=== PATIENT | male | born 1955 | race Caucasian/White ===

== ENCOUNTER 2017-11-16 07:48 | Inpatient (IN) | payer SELFPAY ==
[2017-11-16] VITALS (12 sets, daily range): BP systolic 142–181; BP diastolic 74–103; BMI 27.1
[~2017-11-16] VITALS: Ht 182.9 cm; Wt 90.7 kg
[~2017-11-16 07:48] MED LIST changes: -AMLO-96 PO; -HYDR-4309 PO; -PANT40TA65 PO; -TAMS0.4C70 PO; -TRAM-420 PO
[2017-11-16] MEDS ORDERED: NS(*) 0.9% 1000 ML BAG 1,000 ML IV ONE (07:58)
[2017-11-16] MEDS ORDERED: ONDANSETRON 4 MG/2 ML VIAL IVP ONE (08:00)
[2017-11-16] MEDS ORDERED: HYDROmorphone* 1 MG/ML 1 MG/ML ML IVP ONE ×2 (08:00)
[2017-11-16 08:09] LABS: PLATELET COUNT, AUTOMATED 307 K/uL (150-450)
[2017-11-16] MEDS ORDERED: TRAM-420 PO (08:09)
--- NOTE | 2017-11-16 08:10 | EKG ---
FACILITY: [facility] - [place] PATIENT NAME: AYAD PEREZ : [id number] MR: [id number] V: [id number] EXAM DATE: ORDERING PHYSICIAN: MELY DUNBAR TECHNOLOGIST: ADA Test Reason : SOB Blood Pressure : / mmHG Vent. Rate : 069 BPM Atrial Rate : 069 BPM P-R Int : 140 ms QRS Dur : 096 ms QT Int : 400 ms P-R-T Axes : 038 -48 045 degrees QTc Int : 428 ms Normal sinus rhythm Possible Left atrial enlargement Left anterior fascicular block Anterior infarct , age undetermined Abnormal ECG Confirmed by ARYAN CHO ([id number]) on 11/16/2017 7:03:46 PM Referred By: BETTINA Confirmed By:ARYAN CHO
[2017-11-16 08:18] LABS: INR 1.04
[2017-11-16] MEDS ORDERED: EMS NS 0.9%(*) 1000 ML BAG 1,000 ML IV ONE (08:20)
--- NOTE | 2017-11-16 08:26 | ER Report ---
History and Physical Time Seen By MD: 08:08 Hx. of Stated Complaint: WOKE UP WITH SEVERE UPPER ABDOMINAL PAIN. HPI/ROS CHIEF COMPLAINT: Severe epigastric abdominal pain HISTORY OF PRESENT ILLNESS: Patient is a 62-year-old male who denies any significant past medical history other than left hip arthritis. He is brought to the emergency department by EMS for severe epigastric abdominal pain with some radiation to the bilateral shoulders that began suddenly around 4 AM. Patient states he felt fine yesterday and when he went to sleep. The pain woke him up at 4 AM and was severe and very intense associated with nausea and vomiting. Patient reports last bowel movement was normal and occurred yesterday. He denies any chest pain or pressure. He does report some pain with deep inspiration. Patient received 100 g of fentanyl and 4 mg of Zofran prehospital he with minimal relief in symptoms. Patient is a smoker but quit 20 years ago. He does admit to 4-5 beers every single evening. Patient denies having any retching prior to the onset of the pain. He denies any radiation of pain to the back. Patient does not follow routinely with a physician. REVIEW OF SYSTEMS: Constitutional: No fever, no chills. Eyes: No discharge. ENT: No sore throat. Cardiovascular: No chest pain, no palpitations. Respiratory: No cough, no shortness of breath. Gastrointestinal: Epigastric abdominal pain, nausea and vomiting no diarrhea no constipation Genitourinary: No hematuria. Musculoskeletal: No back pain. Skin: No rashes. Neurological: No headache. Allergies: Coded Allergies: No Known Drug Allergies (Unverified , 11/16/17) Home Meds Reported Medications Tramadol Hcl (TRAMADOL HCL) 50 Mg Tablet, 50 MG PO Q4-6H Y for PAIN, TAB 11/16/17 Discontinued Scripts Amoxicillin/Pot Clav 875-125 Mg Tab (AUGMENTIN 875-125 TABLET) 1 Each Tablet, 1 TAB PO Q12H, #14 TAB 0 Refills Prov:ARAMIS TITUS MD 12/21/15 Past Medical/Surgical History Left hip arthritis Hx Smoking: No Hx Substance Use Disorder: No Constitutional Vital Sign - Last 24 Hours 11/16/17 11/16/17 11/16/17 11/16/17 07:55 07:58 08:00 08:02 Temp 98.5 Pulse 72 Resp 18 B/P (MAP) 135/89 131/103 (112) 135/89 (104) 131/82 (98) Pulse Ox 95 O2 Delivery Nasal Cannula 11/16/17 11/16/17 11/16/17 11/16/17 08:08 08:18 08:58 09:00 Pulse 75 69 78 Resp 25 13 9 B/P (MAP) 174/85 (114) Pulse Ox 92 92 97 11/16/17 11/16/17 09:08 09:16 Pulse 77 82 Resp 11 Pulse Ox 94 Intake and Output 11/16/17 11/16/17 11/17/17 15:00 23:00 07:00 Intake Total 1000 ml Output Total 1300 ml Balance -300 ml Physical Exam General/Constitutional: Patient is awake, alert, patient appears diaphoretic and uncomfortable. Head: Normocephalic and atraumatic. Eyes: Conjunctival clear, Pupils are equal and reactive to light. Extraocular muscles are intact and symmetrical. Sclera are clear and anicteric. Ears:External canals are clear. Tympanic membranes are clear with normal landmarks and light reflex. Nares: No rhinorrhea or bleeding. Turbinates are pink and moist. Oropharyngeal: Mucous membranes are moist. There is no pharyngeal erythema or exudate. There are no palatal petechiae. Uvula is midline and symmetrical. Neck: Supple, no adenopathy. Cardiovascular: Heart is regular rate and rhythm without audible murmurs, rubs or gallops. Pulmonary: Lungs are clear to auscultation bilaterally. There are no wheezes, rales, or rhonchi. Chest rise is symmetrical Abdomen: Abdomen is somewhat rigid no peritoneal signs are elicited. Extremities: No gross deformities, No peripheral cyanosis. Able to move all 4 extremities. Neuro: Alert and oriented X3, Skin: Patient's nose has somewhat of a bluish hue but no other peripheral cyanosis is noted no rashes noted. Medical Decision Making Data Points Result Diagram: 11/16/17 0732 11/16/17 0732 Laboratory Hematology Test 11/16/17 07:32 11/16/17 08:18 11/16/17 09:12 Red Blood Count 5.30 M/uL (4.00-5.60) Mean Corpuscular Volume 86.6 fL (80.0-96.0) Mean Corpuscular Hemoglobin 29.8 pg (26.0-33.0) Mean Corpuscular Hemoglobin Concent 34.5 g/dL (32.0-36.0) Red Cell Distribution Width 12.9 % (11.5-14.5) Mean Platelet Volume 8.0 fL (7.2-11.1) Neutrophils (%) (Auto) 85.3 % (39.4-72.5) Lymphocytes (%) (Auto) 9.4 % (17.6-49.6) Monocytes (%) (Auto) 4.2 % (4.1-12.4) Eosinophils (%) (Auto) 0.5 % (0.4-6.7) Basophils (%) (Auto) 0.6 % (0.3-1.4) Nucleated RBC Relative Count (auto) 0.1 /100WBC Neutrophils # (Auto) 6.2 K/uL (2.0-7.4) Lymphocytes # (Auto) 0.7 K/uL (1.3-3.6) Monocytes # (Auto) 0.3 K/uL (0.3-1.0) Eosinophils # (Auto) 0.0 K/uL (0.0-0.5) Basophils # (Auto) 0.0 K/uL (0.0-0.1) Nucleated RBC Absolute Count (auto) 0.01 K/uL Prothrombin Time 13.6 seconds (12.0-14.4) Prothromb Time International Ratio 1.04 Activated Partial Thromboplast Time 24 seconds (23-35) Sodium Level 141 mmol/L (137-145) Potassium Level 3.8 mmol/L (3.5-5.0) Chloride Level 100 mmol/L (98-107) Carbon Dioxide Level 26 mmol/L (22-30) Blood Urea Nitrogen 21 mg/dl (9-21) Creatinine 1.00 mg/dl (0.66-1.25) Glomerular Filtration Rate Calc > 60.0 Random Glucose 142 mg/dl (75-110) Calcium Level 9.3 mg/dl (8.4-10.2) Magnesium Level 1.7 mg/dl (1.7-2.2) Total Bilirubin 0.6 mg/dl (0.2-1.3) Aspartate Amino Transf (AST/SGOT) 27 U/L (0-35) Alanine Aminotransferase (ALT/SGPT) 27 U/L (0-56) Alkaline Phosphatase 69 U/L (0-126) Troponin I < 0.012 ng/ml Total Protein 7.3 gm/dl (6.3-8.2) Albumin 4.2 g/dl (3.5-5.0) Lipase 132 U/L (23-300) Helicobacter pylori IgG Antibody Negative (NEGATIVE) Urine Color Straw Urine Clarity Clear Urine pH 5.0 pH (4.8-9.5) Urine Specific [place] 1.009 Urine Protein Negative mg/dL (NEGATIVE) Urine Glucose (UA) Negative mg/dL (NEGATIVE) Urine Ketones Negative mg/dL (NEGATIVE) Urine Blood Negative (NEGATIVE) Urine Nitrite Negative (NEGATIVE) Urine Bilirubin Negative (NEGATIVE) Urine Urobilinogen Negative mg/dL (0.2-1.9) Urine Leukocyte Esterase Negative (NEGATIVE) Urine RBC <1 /HPF (0-2/HPF) Urine WBC <1 /HPF (0-5/HPF) Urine Squamous Epithelial Cells None /LPF (NONE-FEW) Urine Bacteria Negative /HPF (NONE-FEW) Urine Mucus None /HPF (NONE-FEW) Lactate 1.2 mmol/L (0.7-2.1) Chemistry Test 11/16/17 07:32 11/16/17 08:18 11/16/17 09:12 White Blood Count 7.3 k/uL (4.5-11.0) Red Blood Count 5.30 M/uL (4.00-5.60) Hemoglobin 15.8 g/dL (14.0-18.0) Hematocrit 45.9 % (42.0-52.0) Mean Corpuscular Volume 86.6 fL (80.0-96.0) Mean Corpuscular Hemoglobin 29.8 pg (26.0-33.0) Mean Corpuscular Hemoglobin Concent 34.5 g/dL (32.0-36.0) Red Cell Distribution Width 12.9 % (11.5-14.5) Platelet Count 307 K/uL (150-450) Mean Platelet Volume 8.0 fL (7.2-11.1) Neutrophils (%) (Auto) 85.3 % (39.4-72.5) Lymphocytes (%) (Auto) 9.4 % (17.6-49.6) Monocytes (%) (Auto) 4.2 % (4.1-12.4) Eosinophils (%) (Auto) 0.5 % (0.4-6.7) Basophils (%) (Auto) 0.6 % (0.3-1.4) Nucleated RBC Relative Count (auto) 0.1 /100WBC Neutrophils # (Auto) 6.2 K/uL (2.0-7.4) Lymphocytes # (Auto) 0.7 K/uL (1.3-3.6) Monocytes # (Auto) 0.3 K/uL (0.3-1.0) Eosinophils # (Auto) 0.0 K/uL (0.0-0.5) Basophils # (Auto) 0.0 K/uL (0.0-0.1) Nucleated RBC Absolute Count (auto) 0.01 K/uL Prothrombin Time 13.6 seconds (12.0-14.4) Prothromb Time International Ratio 1.04 Activated Partial Thromboplast Time 24 seconds (23-35) Glomerular Filtration Rate Calc > 60.0 Calcium Level 9.3 mg/dl (8.4-10.2) Magnesium Level 1.7 mg/dl (1.7-2.2) Total Bilirubin 0.6 mg/dl (0.2-1.3) Aspartate Amino Transf (AST/SGOT) 27 U/L (0-35) Alanine Aminotransferase (ALT/SGPT) 27 U/L (0-56) Alkaline Phosphatase 69 U/L (0-126) Troponin I < 0.012 ng/ml Total Protein 7.3 gm/dl (6.3-8.2) Albumin 4.2 g/dl (3.5-5.0) Lipase 132 U/L (23-300) Helicobacter pylori IgG Antibody Negative (NEGATIVE) Urine Color Straw Urine Clarity Clear Urine pH 5.0 pH (4.8-9.5) Urine Specific [place] 1.009 Urine Protein Negative mg/dL (NEGATIVE) Urine Glucose (UA) Negative mg/dL (NEGATIVE) Urine Ketones Negative mg/dL (NEGATIVE) Urine Blood Negative (NEGATIVE) Urine Nitrite Negative (NEGATIVE) Urine Bilirubin Negative (NEGATIVE) Urine Urobilinogen Negative mg/dL (0.2-1.9) Urine Leukocyte Esterase Negative (NEGATIVE) Urine RBC <1 /HPF (0-2/HPF) Urine WBC <1 /HPF (0-5/HPF) Urine Squamous Epithelial Cells None /LPF (NONE-FEW) Urine Bacteria Negative /HPF (NONE-FEW) Urine Mucus None /HPF (NONE-FEW) Lactate 1.2 mmol/L (0.7-2.1) Coagulation Test 11/16/17 07:32 Prothrombin Time 13.6 seconds Prothromb Time International Ratio 1.04 Activated Partial Thromboplast Time 24 seconds Urinalysis Test 11/16/17 08:18 Urine Color Straw Urine Clarity Clear Urine pH 5.0 pH (4.8-9.5) Urine Specific [place] 1.009 Urine Protein Negative mg/dL (NEGATIVE) Urine Glucose (UA) Negative mg/dL (NEGATIVE) Urine Ketones Negative mg/dL (NEGATIVE) Urine Blood Negative (NEGATIVE) Urine Nitrite Negative (NEGATIVE) Urine Bilirubin Negative (NEGATIVE) Urine Urobilinogen Negative mg/dL (0.2-1.9) Urine Leukocyte Esterase Negative (NEGATIVE) Urine RBC <1 /HPF (0-2/HPF) Urine WBC <1 /HPF (0-5/HPF) Urine Squamous Epithelial Cells None /LPF (NONE-FEW) Urine Bacteria Negative /HPF (NONE-FEW) Urine Mucus None /HPF (NONE-FEW) EKG/Imaging EKG Interpretation EKG shows normal sinus rhythm with a ventricular rate of 69 bpm. Patient has a incomplete right bundle branch block with left anterior fascicular block and left axis deviation. There is no prior EKG to compare to. There is no evidence of ST segment elevation, depression or abnormal T wave inversion. Monitor Interpretation: Normal Sinus Rhythm Imaging X-ray of the chest shows obvious free air under diaphragm. FACILITY: [facility] PATIENT NAME: William Cowan : 1955 MR: [id number] V: [id number] EXAM DATE: ORDERING PHYSICIAN: MELY DUNBAR TECHNOLOGIST: Location: [facility] - [place] Patient: William Cowan : 1955 Visit/Account:[id number] Date of Sevice: 11/16/2017 CHEST/AB/PELV W/CONTRAST HISTORY: chest/ab pain ADDITIONAL HISTORY: None. TECHNIQUE: Following administration of IV contrast axial images acquired through the chest abdomen and pelvis during the portal venous phase. Coronal and sagittal reformatting was also performed. Dose Lowering Technique One of the following dose optimization techniques was utilized in the performance of this exam: Automated exposure control; adjustment of the mA and/ or kV according to the patient's size; or use of an iterative reconstruction technique. Specific details can be referenced in the facility's radiology CT exam operational policy. CONTRAST: 100 mL Isovue-370 COMPARISON: Single view chest performed today FINDINGS: CHEST: Lungs/Pleura: There are dependent changes seen in the lower lung duggan Mediastinum/lymph nodes: Negative. Heart/vessels: Mild coronary artery calcifications Bones/soft tissues: S-shaped scoliosis of the thoracic spine. No aggressive appearing bone lesions are seen ABDOMEN AND PELVIS: Hepatobiliary: Cholelithiasis although no evidence of biliary ductal dilatation. 1.5 cm hypodensity right lobe the liver consistent with a cyst. Additional subcentimeter hypodensities within the liver likely representing additional cysts although too small to characterize. A 1.5 cm area of enhancement in the lateral segment left lobe the liver consistent with a solid mass Spleen: Negative. Pancreas: Negative. Adrenals: Negative. Kidneys ureters and bladder : There Is a mild left hydronephrosis and mild dilatation of the left ureter to the level of the bladder. An obstructing calculus is not seen. Sims catheter is noted within the bladder with a tiny amount of intraluminal air likely related to the catheter placement. There is moderate bladder wall thickening Genitalia: Left hydrocele GI: There Is diverticulosis throughout the left-sided colon although no CT evidence of acute diverticulitis. There is a moderate amount of fluid within the stomach. There is moderate thickening of the duodenal bulb. There appears to be a tract of fluid extending laterally from the lateral wall of the duodenal bulb with several adjacent bubbles of free air. Additionally there are serpiginous areas of increased density within the duodenal bulb which could represent blood products. There is a moderate amount of free intraperitoneal air, most prominent in the upper abdomen. There is a moderate amount of simple free fluid within the abdomen and pelvis most prominent in the pelvis. Vessels/spaces/nodes: Negative. Bones/soft tissues: No aggressive appearing bone lesions are seen Additional findings: None pertinent. IMPRESSION: There is a moderate amount of free intracranial air predominantly in the upper abdomen. Several bubbles of air are seen just lateral to the duodenal bulb where there appears to be a tract of free fluid extending through the wall. These findings are most likely related to a perforated duodenal ulcer. Also associated with a moderate amount of free fluid most prominent in the pelvis initially there are serpiginous areas of increased density within the duodenal bulb which could represent blood products.. Diverticulosis of the colon although no CT evidence of acute diverticulitis Cholelithiasis although no evidence for ductal dilatation Left hepatic cysts and a 1.5 cm area of enhancement the lateral segment left lobe of the liver. This could represent an incidental hemangioma although other solid lesions not excluded. Further evaluation with triphasic CT of the liver or MR the liver with and without contrast recommended Left hydrocele Moderate bladder all thickening. There is mild left hydronephrosis and left hydroureter although a calculus is not seen. Possibility of an obstructing lesion the distal left ureter not excluded.Results were called to MELY DUNBAR at 11/16/2017 9:25 AM. Report Dictated By: Gaviota Patel MD at 11/16/2017 9:07 AM Report E-Signed By: Gaviota Patel MD at 11/16/2017 9:29 AM [email or web address] ED Course/Re-evaluation Clinical Indication for ER IV: IV Access ED Course 11/16/2017 8:24:38 am blood pressure in both arms was obtained but no significant difference was found between both left and right upper extremities. Bedside ultrasound showed a dilated bladder and Sims catheter was placed with initial return of 1200 mL of urine and it is continuing to drain. Differential diagnosis is broad at this time to include cardiopulmonary causes including acute coronary syndrome, aortic dissection, aortic aneurysm, GI causes including pancreatitis, biliary colic, bowel obstruction. We will attempt to keep the patient comfortable. Patient is scheduled for CT scan of the chest abdomen and pelvis. Blood work is pending at this time. 11/16/2017 8:27:59 am objectively patient seems somewhat improved he does say his pain is improving but he still having some discomfort. We will repeat a dose of Dilaudid at this time. Patient has approximately 1400 mL of urine and that appears clear in the Sims bag. Awaiting additional studies at this time 11/16/2017 9:22:05 am the general surgeon Dr. Evelyn Reilly is here to evaluate the patient for suspected perforated peptic ulcer. Official CT scan of the abdomen and pelvis is pending however Dr. Reilly has reviewed the film herself at this time. Plan seems as if the patient will be going to the operating room. Patient was started on triple antibiotics including thank mycin , Flagyl, cefepime. Patient's pain is still severe. He has had 2 mg of IV Dilaudid and 100 grams of fentanyl. Plan at this time will be to start him on a ketamine drip with a bolus of 10 mg and then started drip at 10 mg per hour awaiting OR. Decision to Disposition Date: Nov 16, 2017 Decision to Disposition Time: 09:48 Depart Departure Latest Vital Signs Vital Signs Date Time Temp Pulse Resp B/P (MAP) Pulse Ox O2 Delivery O2 Flow Rate FiO2 11/16/17 09:16 82 11/16/17 09:08 11 94 11/16/17 09:00 174/85 (114) 11/16/17 07:55 98.5 Nasal Cannula Impression: Primary Impression: Perforated peptic ulcer Condition: Condition Unchanged Disposition: ADMIT FROM ER TO OR (to Dr Reyes) MELY DUNBAR MD Nov 16, 2017 08:26
[2017-11-16] MEDS ORDERED: IOPAMIDOL 76% 100 ML INFUS BTL 100 ML ONE (08:30)
[2017-11-16] MEDS ORDERED: VANCOMYCIN 1 GM ADDVIAL 1 GM in NS(*) 0.9% 250 ML ADDVAN BAG 250 ML IVPB ONE (08:40)
[2017-11-16] MEDS ORDERED: metroNIDAZOLE* 500MG/100ML BAG 100 ML IVPB ONE (08:40)
[2017-11-16] MEDS ORDERED: CEFEPIME HCL 2 GM VIAL IVP ONE (08:40)
--- NOTE | 2017-11-16 08:42 | RADIOLOGY IMAGING REPORT ---
FACILITY: [facility] - [place] PATIENT NAME: William Cowan : 1955 MR: [id number] V: [id number] EXAM DATE: ORDERING PHYSICIAN: MELY DUNBAR TECHNOLOGIST: Location: [facility] - [place] Patient: William Cowan : 1955 Visit/Account:[id number] Date of Sevice: 11/16/2017 CHEST SINGLE AP HISTORY: Shortness of breath. COMPARISON: None. FINDINGS: A single portable AP view of the chest is obtained. Lines/tubes: None. Lungs/pleura: Negative. Heart: Negative. Mediastinum: Negative. Bony structures/body wall: Free air in the upper abdomen. No acute osseous findings. IMPRESSION: Free air in the upper abdomen. Otherwise no acute cardiopulmonary process. Results were called to MELY DUNBAR at 11/16/2017 8:33 AM. Report Dictated By: Adelso Gutierrez MD at 11/16/2017 8:32 AM Report E-Signed By: Adelso Gutierrez MD at 11/16/2017 8:38 AM WSN:[id number]
--- NOTE | 2017-11-16 08:46 | Gen Surgery History & Physical ---
History of Present Illness Chief Complaint Epigastric pain History of Present Illness 62 year old man presents with 5 hours of severe epigastric pain. Pain woke him from sleep and was associated with N/V. He also reports pleuritic pain and pain that radiates to is shoulders. He denies any prior history of similar pain. He does take naproxen for left hip pain as well as intermittent tramadol. Denies prior history of GERD symptoms. He came to the ED for evaluation where a CXR showed evidence of free intraabdominal air. A CT was obtained and showed free air and fluid consistent with perforated peptic ulcer. It also showed diverticulosis but no clear evidence of diverticulitis. Denies significant past medical history. Remote smoking history, does report 4- 5 beers daily. History Home Meds Reported Medications Tramadol Hcl (TRAMADOL HCL) 50 Mg Tablet, 50 MG PO Q4-6H Y for PAIN, TAB 11/16/17 Discontinued Scripts Amoxicillin/Pot Clav 875-125 Mg Tab (AUGMENTIN 875-125 TABLET) 1 Each Tablet, 1 TAB PO Q12H, #14 TAB 0 Refills Prov:ARAMIS TITUS MD 12/21/15 Allergies: Coded Allergies: No Known Drug Allergies (Unverified , 11/16/17) Review of Systems Gastrointestinal: Nausea, Abdominal Pain Musculoskeletal: Pain (left hip pain) Exam General Appearance: Alert, Awake, No Acute Distress Eyes: PERRLA ENT: Normal, Moist Mucous Membranes Cardiovascular: Normal Rhythm & Peripheral Pulses, Regular Rate and Rhythm Respiratory: No Respiratory Distress, Clear to Auscultation GI: Abd Soft and Non-Tender, Other (ABd distended, firm. Tender throughout, negative rebound. No guarding. ) : Other (Sims placed for retention. ) Musculoskeletal: No Weakness/Pain Extremities: Soft and Non Tender, Warm, Pulses Integumentary: Skin Intact without Lesion / Mass Psych: Alert & Oriented X3, Appropriate Mood & Affect Medical Decision Making Data Points Result Diagram: 11/16/17 0732 11/16/17 0732 Assessment and Plan Problems: (1) Perforated peptic ulcer Status: Acute Assessment & Plan: Discussed findings on imaging and clinical exam with patient. Recommend abdominal exploration and possible kee patch. He understands and would like to proceed with surgery. Consent obtained. Will coordinate with OR for urgent procedure. Admit to floor with monitoring. Venous Thromboembolism VTE Risk Physician Assess for VTE Risk: Yes Patient's VTE Risk: High Antithrombotics Is Pt On Any Antithrombotics?: No CAESAR FUENTES MD Nov 16, 2017 08:46
[2017-11-16] MEDS ORDERED: KETAMINE HCL(*)500MG/5ML VIAL 500 MG in NS(*) 0.9% 500 ML BAG 495 ML IVPB ONE (09:00)
[2017-11-16] MEDS ORDERED: LORazepam 2 MG/ML VIAL IVP ONE (09:00)
--- NOTE | 2017-11-16 09:33 | RADIOLOGY IMAGING REPORT ---
[place] [facility] [place] William Cowan : 1955 MR: [id number] V: [id number] EXAM DATE: ORDERING PHYSICIAN: MELY DUNBAR [place]CHN[place] [facility] [place] : 1955 Visit/Account:[id number] Date of Sevice: 11/16/2017 CHEST/AB/PELV W/CONTRAST HISTORY: chest/ab pain ADDITIONAL HISTORY: None. TECHNIQUE: Following administration of IV contrast axial images acquired through the chest abdomen a nd pelvis during the portal venous phase. Coronal and sagittal reformatting was also performed. Dose Lowering Technique One of the following dose optimization techniques was utilized in the performance of this exam: Autom ated exposure control; adjustment of the mA and/or kV according to the patient's size; or use of an i terative reconstruction technique. Specific details can be referenced in the facility's radiology C T exam operational policy. CONTRAST: 100 mL Isovue-370 COMPARISON: Single view chest performed today FINDINGS: CHEST: Lungs/Pleura: There are dependent changes seen in the lower lung duggan Mediastinum/lymph nodes: Negative. Heart/vessels: Mild coronary artery calcifications Bones/soft tissues: S-shaped scoliosis of the thoracic spine. No aggressive appearing bone lesions are seen ABDOMEN AND PELVIS: Hepatobiliary: Cholelithiasis although no evidence of biliary ductal dilatation. 1.5 cm hypodensity right lobe the liver consistent with a cyst. Additional subcentimeter hypodensities within the live r likely representing additional cysts although too small to characterize. A 1.5 cm area of enhancem ent in the lateral segment left lobe the liver consistent with a solid mass Spleen: Negative. Pancreas: Negative. Adrenals: Negative. Kidneys ureters and bladder : There Is a mild left hydronephrosis and mild dilatation of the left ure ter to the level of the bladder. An obstructing calculus is not seen. Sims catheter is noted withi n the bladder with a tiny amount of intraluminal air likely related to the catheter placement. There is moderate bladder wall thickening Genitalia: Left hydrocele GI: There Is diverticulosis throughout the left-sided colon although no CT evidence of acute diverti culitis. There is a moderate amount of fluid within the stomach. There is moderate thickening of the duodena l bulb. There appears to be a tract of fluid extending laterally from the lateral wall of the duoden al bulb with several adjacent bubbles of free air. Additionally there are serpiginous areas of incre ased density within the duodenal bulb which could represent blood products. There is a moderate amou nt of free intraperitoneal air, most prominent in the upper abdomen. There is a moderate amount of s imple free fluid within the abdomen and pelvis most prominent in the pelvis. Vessels/spaces/nodes: Negative. Bones/soft tissues: No aggressive appearing bone lesions are seen Additional findings: None pertinent. IMPRESSION: There is a moderate amount of free intracranial air predominantly in the upper abdomen. Several bubb les of air are seen just lateral to the duodenal bulb where there appears to be a tract of free fluid extending through the wall. These findings are most likely related to a perforated duodenal ulcer. Also associated with a moderate amount of free fluid most prominent in the pelvis initially there ar e serpiginous areas of increased density within the duodenal bulb which could represent blood product s.. Diverticulosis of the colon although no CT evidence of acute diverticulitis Cholelithiasis although no evidence for ductal dilatation Left hepatic cysts and a 1.5 cm area of enhancement the lateral segment left lobe of the liver. This could represent an incidental hemangioma although other solid lesions not excluded. Further evaluat ion with triphasic CT of the liver or MR the liver with and without contrast recommended Left hydrocele Moderate bladder all thickening. There is mild left hydronephrosis and left hydroureter although a calculus is not seen. Possibility of an obstructing lesion the distal left ureter not excluded.Resul ts were called to MELY DUNBAR at 11/16/2017 9:25 AM. Report Dictated By: Gaviota Patel MD at 11/16/2017 9:07 AM Report E-Signed By: Gaviota Patel MD at 11/16/2017 9:29 AM [id number]:[email or web address]
[2017-11-16] MEDS ORDERED: FAMOTIDINE 20 MG/50 ML PREMIX IVPB ONE (10:35)
[2017-11-16] MEDS ORDERED: NORMOSOL R SOLN(*) 1000 ML BAG 1,000 ML IV PRN ×2 (10:35→13:50)
[2017-11-16] MEDS ORDERED: NS(*) 0.9% 1000 ML BAG 1,000 ML ONE (11:09)
[2017-11-16] MEDS ORDERED: NS(*) 0.9% 500 ML BAG 500 ML ONE (11:11)
[2017-11-16] MEDS ORDERED: NS(*) 0.9% 1000 ML BAG 1,000 ML IV PRN (13:30)
[2017-11-16] MEDS ORDERED: SUCCINYLCHOL CHL 200MG/10ML VL ONE (14:16)
[2017-11-16] MEDS ORDERED: ONDANSETRON 4 MG/2 ML VIAL ONE (14:16)
[2017-11-16] MEDS ORDERED: LIDOCAINE MPF 1% 5 ML VIAL ONE (14:16)
[2017-11-16] MEDS ORDERED: fentaNYL CITR 100 MCG/2 ML AMP ONE (14:16)
[2017-11-16] MEDS ORDERED: ROCURONIUM BROM 10 MG/ML 10 ML ONE (14:16)
[2017-11-16] MEDS ORDERED: ETOMIDATE 20 MG/10 ML VIAL ONE (14:16)
[2017-11-16] MEDS ORDERED: DEXAMETHASONE SOD PHOS 10MG/ML ONE (14:16)
[2017-11-16] MEDS ORDERED: SUGAMMADEX SOD 500 MG/5 ML SDV ONE (15:32)
[2017-11-16] MEDS ORDERED: ACETAMINOPHEN(*)1000 MG/100 ML 100 ML IVPB ONE (15:38)
[2017-11-16] MEDS ORDERED: KCL/D1/2NS 20 MEQ 1000 ML 1,000 ML IV PRN ×2 (15:59→16:06)
--- NOTE | 2017-11-16 15:59 | Post Operative Note ---
Operative Note - ENT Operative Day Date: Nov 16, 2017 Time: 15:56 Physicians Surgeon: Caesar Fuentes MD Anesthesia: Dr. Balderas Diagnosis Pre-Op Diagnosis: Perforated duodenal ulcer Post-Op Diagnosis: same Procedure Findings: 1cm defect distal to pylorus in 1st portion of duodenum Procedure(s): Exploratory laparotomy, kee patch of duodenal ulcer Specimen Removed:(Maybe N/A): none Complications: none Fluids Estimated Blood Loss: 50 CAESAR FUENTES MD Nov 16, 2017 15:59
[2017-11-16] MEDS ORDERED: ONDANSETRON 4 MG/2 ML VIAL IVP PRN (16:10)
[2017-11-16] MEDS ORDERED: HYDROmorphone PCA 6 MG/30 ML IV PRN (16:10)
[2017-11-16] MEDS ORDERED: PANTOPRAZOLE SOD(*)40 MG VIAL 80 MG in NS(*) 0.9% 100 ML BAG 100 ML IVPB ONE (16:30)
[2017-11-16] MEDS ORDERED: NALOXONE HCL 0.4 MG/ML VIAL IVP PRN (16:35)
[2017-11-16] MEDS: PANTOPRAZOLE SOD(*)40 MG VIAL 80 MG in NS(*) 0.9% 100 ML BAG 100 ML IV SCH (18:23)
[2017-11-16] MEDS: PIPERACILLIN/TAZO*3.375GM VIAL 3.375 GM in NS(*) 0.9% 100 ML ADDVANT BAG 100 ML IVPB SCH ×2 (18:23→23:41)
[2017-11-16] MEDS: hydrALAZINE HCL 20 MG/ML VIAL IVP PRN (19:37)
--- NOTE | 2017-11-16 20:20 | OPERATIVE REPORT 1 ---
EVENT DATE: November 16, 2017 SURGEON: Evelyn Dorsey MD ANESTHESIOLOGIST: Andreas Balderas MD ANESTHESIA: General endotracheal tube anesthesia. PREOPERATIVE DIAGNOSIS Perforated peptic ulcer. POSTOPERATIVE DIAGNOSIS Perforated peptic ulcer. PROCEDURES PERFORMED 1. Exploratory laparotomy. 2. Bonilla patch of duodenal ulcer. ESTIMATED BLOOD LOSS 50 mL WOUND CLASSIFICATION IV SPECIMENS None. DESCRIPTION OF PROCEDURE After informed consent was obtained, the patient was brought to the operating room where general anesthesia was induced. He was placed in the supine position with arms extended. Preoperative antibiotics had been given prior to OR. After timeout, a midline laparotomy incision was made. This was deepened through the subcutaneous tissues until the fascia was encountered. The fascia was incised and the peritoneum sharply entered. The incision was then extended cranially and caudally. There was evidence of air and bile-tinged fluid upon entering the abdomen. Attention was turned first to the stomach and first portion of the duodenum where there was noted to be approximately a 1 cm hole just distal to the pylorus. The abdomen was then further inspected. There was evidence of a murky, purulent-appearing fluid in the pelvis and bilateral paracolic gutters. The sigmoid colon had diverticulosis, but no evidence of diverticulitis. The small bowel appeared inflamed, but otherwise normal. The liver was grossly normal. Subsequently, an Omni retractor was placed. The perforated duodenal ulcer was then repaired in a Bonilla patch fashion. Healthy appearing omentum off the transverse colon was identified, and a large vascular pedicle was created using a combination of electrocautery and suture ligature. The omental pedicle flap was then brought up and reached easily without tension to the first portion of the duodenum. Using four 3-0 silk sutures, stay sutures were placed on either side of the defect. This was arranged so that the pedicle flap could then be placed overlying the perforation, and the suture was then tied down to secure the pedicle flap over the defect. The abdomen was then thoroughly irrigated with 4 L of warm normal saline. There was no evidence of further bile staining or succus. A 19-Finnish BUD drain was then placed overlying the repair. This was set to bulb suction. The abdomen was then closed with two #1 looped PDS sutures. The wound was then irrigated, and a subcutaneous wound VAC was placed and set to 125 mmHg suction. The patient was then awakened and extubated without complications. He was subsequently to PACU in stable condition. [facility]
[2017-11-16] MEDS: FLUCONAZOLE 200 MG/100ML PRMIX 100 ML IVPB SCH (20:37)
[2017-11-16] MEDS: ACETAMINOPHEN(*)1000 MG/100 ML 100 ML IVPB SCH (23:40)
[2017-11-17] VITALS (7 sets, daily range): BP systolic 143–164; BP diastolic 73–95
[2017-11-17] MEDS: PANTOPRAZOLE SOD(*)40 MG VIAL 80 MG in NS(*) 0.9% 100 ML BAG 100 ML IV SCH ×2 (05:23→15:36)
[2017-11-17] MEDS: PIPERACILLIN/TAZO*3.375GM VIAL 3.375 GM in NS(*) 0.9% 100 ML ADDVANT BAG 100 ML IVPB SCH ×3 (05:23→18:08)
[2017-11-17] MEDS: KCL/D1/2NS 20 MEQ 1000 ML 1,000 ML IV PRN ×2 (05:23→15:43)
[2017-11-17] MEDS: ACETAMINOPHEN(*)1000 MG/100 ML 100 ML IVPB SCH ×2 (07:30→15:36)
--- NOTE | 2017-11-17 07:46 | General Surgery Progress Note ---
Subjective Progress Notes Subjective No new events overnight. Pain well controlled. 300 from NG, 60 from BUD. Physical Exam Vital Signs Date Time Temp Pulse Resp B/P (MAP) Pulse Ox O2 Delivery O2 Flow Rate FiO2 11/17/17 06:23 20 92 11/17/17 06:00 63 146/73 (97) Nasal Cannula 2.0 11/17/17 04:00 98.1 General Appearance: Alert, No Acute Distress ENT: Other (NG with bilious output) Cardiovascular: Normal Rhythm & Peripheral Pulses, Regular Rate and Rhythm Respiratory: No Respiratory Distress GI: Other (Appropriately tender post-op. Midline vac with good seal. ) : Other (Beckford with clear UOP) Extremities: Soft and Non Tender, Pulses Integumentary: Skin Intact without Lesion / Mass Psych: Alert & Oriented X3, Appropriate Mood & Affect Result Diagram: 11/16/17 0732 11/16/17 0732 New AM labs pending Monitor Interpretation: Normal Sinus Rhythm Assessment and Plan Problems: (1) Perforated peptic ulcer Status: Acute Assessment & Plan: Discussed findings on imaging and clinical exam with patient. Recommend abdominal exploration and possible kee patch. He understands and would like to proceed with surgery. Consent obtained. Will coordinate with OR for urgent procedure. Admit to floor with monitoring. 11/17: POD #1 s/p ex-lap, kee patch of perforated duodenal ulcer. Continue BUD drain, continue NG to LIWS. Continue NPO with minimal ice chips. Continue IV zosyn, fluconazole. D/c beckford catheter, encourage OOB, ambulation. Exam Sepsis Risk: No Definite Risk CAESAR FUENTES MD Nov 17, 2017 07:46
[2017-11-17 09:24] LABS: PLATELET COUNT, AUTOMATED 198 K/uL (150-450)
[2017-11-17] MEDS: FLUCONAZOLE 200 MG/100ML PRMIX 100 ML IVPB SCH ×2 (09:55→20:48)
[2017-11-18 00:14] VITALS: BP 147/99
[2017-11-18] MEDS: ACETAMINOPHEN(*)1000 MG/100 ML 100 ML IVPB SCH ×4 (00:15→23:52)
[2017-11-18] MEDS: PIPERACILLIN/TAZO*3.375GM VIAL 3.375 GM in NS(*) 0.9% 100 ML ADDVANT BAG 100 ML IVPB SCH ×5 (00:15→23:52)
[2017-11-18 06:02] VITALS: BP_SYST 147; BP_SYST 159; BP_DIAS 98; BP_DIAS 99
[2017-11-18] MEDS: PANTOPRAZOLE SOD(*)40 MG VIAL 80 MG in NS(*) 0.9% 100 ML BAG 100 ML IV SCH ×3 (06:03→23:52)
[2017-11-18] MEDS: KCL/D1/2NS 20 MEQ 1000 ML 1,000 ML IV PRN ×2 (06:03→16:31)
[2017-11-18 06:25] LABS: PLATELET COUNT, AUTOMATED 183 K/uL (150-450)
[2017-11-18 07:15] VITALS: BP 153/93
--- NOTE | 2017-11-18 08:32 | General Surgery Progress Note ---
Subjective Progress Notes Subjective Required straight cath overnight. Feels anxious regarding hospitalization. Passing some flatus, no N/V. Physical Exam Vital Signs Date Time Temp Pulse Resp B/P (MAP) Pulse Ox O2 Delivery O2 Flow Rate FiO2 11/18/17 07:32 92 Nasal Cannula 1.0 11/18/17 07:15 98.3 65 14 153/93 (113) Intake and Output 11/19/17 07:00 # Voids 0 General Appearance: Alert, Awake ENT: Moist Mucous Membranes Cardiovascular: Normal Rhythm & Peripheral Pulses Respiratory: No Respiratory Distress GI: Other (appropriately tender, soft, Midline vac with good seal. BUD with thin serosanguinous output. ) Musculoskeletal: No Weakness/Pain Extremities: Soft and Non Tender Integumentary: Skin Intact without Lesion / Mass Psych: Alert & Oriented X3, Appropriate Mood & Affect Result Diagram: 11/18/1752211/18/17522 Monitor Interpretation: Normal Sinus Rhythm Assessment and Plan Problems: (1) Perforated peptic ulcer Status: Acute Assessment & Plan: Discussed findings on imaging and clinical exam with patient. Recommend abdominal exploration and possible kee patch. He understands and would like to proceed with surgery. Consent obtained. Will coordinate with OR for urgent procedure. Admit to floor with monitoring. 11/17: POD #1 s/p ex-lap, kee patch of perforated duodenal ulcer. Continue BUD drain, continue NG to LIWS. Continue NPO with minimal ice chips. Continue IV zosyn, fluconazole. D/c beckford catheter, encourage OOB, ambulation. 11/18: POD #2 s/p ex-lap, kee patch of duodenal ulcer. Continue BUD, NG. Replace beckford, start flomax. Continue IV abx, CANE PUSHER for pain, scheduled tylenol. May shower today, encourage ambulation. Possible swallow study tomorrow. Exam Sepsis Risk: No Definite Risk CAESAR FUENTES MD Nov 18, 2017 08:32
[2017-11-18] MEDS: FLUCONAZOLE 200 MG/100ML PRMIX 100 ML IVPB SCH ×2 (09:46→20:42)
[2017-11-18 10:48] VITALS: Ht 182.9 cm; Wt 90.7 kg
[2017-11-18] MEDS: NS(*) 0.9% 500 ML BAG 500 ML IV PRN (11:17)
[2017-11-18] MEDS: LIDOCAINE 5% PATCH TP SCH (11:17)
[2017-11-18 12:35] VITALS: BP 158/95
[2017-11-18] MEDS: TAMSULOSIN HCL 0.4 MG CAP PO SCH (18:23)
[2017-11-18 19:33] VITALS: BP 165/108
[2017-11-18] MEDS: PATCH REMOVAL 1 EA TP SCH (20:42)
[2017-11-18 23:52] VITALS: BP 157/92
[2017-11-19] MEDS: PIPERACILLIN/TAZO*3.375GM VIAL 3.375 GM in NS(*) 0.9% 100 ML ADDVANT BAG 100 ML IVPB SCH ×3 (06:17→17:24)
[2017-11-19 06:21] VITALS: BP 155/93
[2017-11-19] MEDS: ACETAMINOPHEN(*)1000 MG/100 ML 100 ML IVPB SCH ×2 (08:40→15:40)
[2017-11-19] MEDS: TAMSULOSIN HCL 0.4 MG CAP PO SCH (08:41)
[2017-11-19] MEDS: LIDOCAINE 5% PATCH TP SCH (08:41)
[2017-11-19] MEDS: FLUCONAZOLE 200 MG/100ML PRMIX 100 ML IVPB SCH ×2 (09:31→20:32)
[2017-11-19] MEDS ORDERED: DIATRIZOATE MEGL/DIATRIZOA SOD 120 ML SOLN PO ONE (09:39)
[2017-11-19 11:42] VITALS: BP 147/104
[2017-11-19] MEDS: PANTOPRAZOLE SOD(*)40 MG VIAL 80 MG in NS(*) 0.9% 100 ML BAG 100 ML IV SCH (13:56)
[2017-11-19 15:28] VITALS: BP 156/109
[2017-11-19] MEDS: NS(*) 0.9% 500 ML BAG 500 ML IV PRN (15:40)
[2017-11-19] MEDS ORDERED: KCL/D1/2NS 20 MEQ 1000 ML 1,000 ML IV PRN (16:54)
--- NOTE | 2017-11-19 18:00 | RADIOLOGY IMAGING REPORT ---
FACILITY: [facility] PATIENT NAME: William Cowan : 1955 MR: [id number] V: [id number] EXAM DATE: [id number] ORDERING PHYSICIAN: CAESAR FUENTES TECHNOLOGIST: Location: [facility] [place] Patient: William Cowan : 1955 Visit/Account:[id number] Date of Sevice: 11/19/2017 Exam type: UPPER GI SERIES W/O AIR History: S/P repair of duodenal ulcer, eval for leak Comparison: CT chest seven pelvis November 16, 2017. Findings: A dilute Gastrografin suspension was instilled into the stomach through the patient's existing NG tub e. There is a tiny collection of Gastrografin that projected just lateral to the proximal second por tion of the duodenum. This appeared to be contained without evidence of free extravasation. Remaind er of the study was unremarkablethe fluoroscopy dose area product was 1024.86 micro-Ambrocio per meter sq uared IMPRESSION: 1. A very tiny collection of Gastrografin projects just lateral to the proximal second portion the d uodenum which appear to be contained without evidence of free extravasation. Report Dictated By: Gaviota Patel MD at 11/19/2017 5:54 PM Report E-Signed By: Gaviota Patel MD at 11/19/2017 5:56 PM WSN:[email or web address]
[2017-11-19 18:32] VITALS: BP 162/99
[2017-11-19] MEDS: PATCH REMOVAL 1 EA TP SCH (20:32)
[2017-11-20] VITALS (7 sets, daily range): BP systolic 157–180; BP diastolic 86–112
[2017-11-20] MEDS: PIPERACILLIN/TAZO*3.375GM VIAL 3.375 GM in NS(*) 0.9% 100 ML ADDVANT BAG 100 ML IVPB SCH ×2 (00:14→05:39)
[2017-11-20] MEDS: ACETAMINOPHEN(*)1000 MG/100 ML 100 ML IVPB SCH (00:14)
[2017-11-20] MEDS: PANTOPRAZOLE SOD(*)40 MG VIAL 80 MG in NS(*) 0.9% 100 ML BAG 100 ML IV SCH (00:16)
[2017-11-20] MEDS ORDERED: APAP/HYDROCODONE 325/5 TAB PO PRN (06:50)
--- NOTE | 2017-11-20 06:50 | General Surgery Progress Note ---
Subjective Progress Notes Subjective no complaints, no pain, no nausea, tolerating clears Physical Exam Vital Signs Date Time Temp Pulse Resp B/P (MAP) Pulse Ox O2 Delivery O2 Flow Rate FiO2 11/20/17 05:45 91 11/20/17 05:38 98.2 58 16 167/104 (125) Nasal Cannula 1.5 General Appearance: Alert, Awake, No Acute Distress GI: Soft and Non-Tender Result Diagram: 11/19/1752611/19/17526 Monitor Interpretation: Normal Sinus Rhythm Assessment and Plan Problems: (1) Perforated peptic ulcer Status: Acute Assessment & Plan: Discussed findings on imaging and clinical exam with patient. Recommend abdominal exploration and possible kee patch. He understands and would like to proceed with surgery. Consent obtained. Will coordinate with OR for urgent procedure. Admit to floor with monitoring. 11/17: POD #1 s/p ex-lap, kee patch of perforated duodenal ulcer. Continue BUD drain, continue NG to LIWS. Continue NPO with minimal ice chips. Continue IV zosyn, fluconazole. D/c beckford catheter, encourage OOB, ambulation. 11/18: POD #2 s/p ex-lap, kee patch of duodenal ulcer. Continue BUD, NG. Replace beckford, start flomax. Continue IV abx, SECTION LABORER for pain, scheduled tylenol. May shower today, encourage ambulation. Possible swallow study tomorrow. 11/20/17 doing well. increase diet and switch to po analgesia and ppi Exam Sepsis Risk: No Definite Risk PRANAY CULLEN MD November 20, 2017 06:49
[2017-11-20] MEDS: PANTOPRAZOLE SOD 40 MG TABEC PO SCH ×2 (09:11→20:44)
[2017-11-20] MEDS: TAMSULOSIN HCL 0.4 MG CAP PO SCH (09:11)
[2017-11-20] MEDS: hydrALAZINE HCL 20 MG/ML VIAL IVP PRN (09:12)
[2017-11-20] MEDS: LIDOCAINE 5% PATCH TP SCH (09:12)
[2017-11-20] MEDS: FLUCONAZOLE 200 MG/100ML PRMIX 100 ML IVPB SCH (09:13)
[2017-11-20] MEDS ORDERED: amLODIPine BESYL(*) 2.5 MG TAB PO SCH (14:00)
--- NOTE | 2017-11-20 14:12 | Hospitalist Consultation ---
History of Present Illness Requesting Physician Dr. Arvizu Reason for Consult Hypertension Chief Complaint High Blood Pressure History of Present Illness He was admitted to hospital 11/16 with a perforated duodenal ulcer. He underwent abdominal surgery to repair the ulcer. He was found to have high blood pressure during hospital admission. Hospitalist were consulted to manage blood pressure. History Problems: (1) Perforated peptic ulcer Status: Acute Home Meds Reported Medications Tramadol Hcl (TRAMADOL HCL) 50 Mg Tablet, 50 MG PO Q4-6H Y for PAIN, TAB 11/16/17 Discontinued Scripts Amoxicillin/Pot Clav 875-125 Mg Tab (AUGMENTIN 875-125 TABLET) 1 Each Tablet, 1 TAB PO Q12H, #14 TAB 0 Refills Prov:ARAMIS TITUS MD 12/21/15 Allergies: Coded Allergies: No Known Drug Allergies (Unverified , 11/16/17) Hx Smoking: No Caffeine Intake: Tea Caffeine/Cups Per Day: 2 Hx Alcohol Use: Yes Alcohol Used: Beer Hx Substance Use Disorder: No Review of Systems All Systems Reviewed/Normal: Yes, Except as Noted Neurological: Other (headache) Exam Vital Signs Vital Signs Date Time Temp Pulse Resp B/P (MAP) Pulse Ox O2 Delivery O2 Flow Rate FiO2 11/20/17 11:01 97.9 66 18 157/98 (117) 93 Nasal Cannula 1.0 General Appearance: Alert, Awake, No Acute Distress, Afebrile Neuro: No Gross deficits Cardiovascular: Regular Rate and Rhythm Respiratory: No Respiratory Distress, Clear to Auscultation Psych: Alert & Oriented X3, Appropriate Mood & Affect Medical Decision Making Data Points Result Diagram: 11/19/17 0527 11/19/17 0527 Assessment and Plan Problems: (1) Hypertension Status: Acute Assessment & Plan: He was found to have elevated blood pressure throughout admission. We will stop hydralazine (ordered for blood pressure) and switch him to Amlodipine 2.5 mg daily. (2) Perforated peptic ulcer Status: Acute Assessment & Plan: Managed by Dr. Arvizu. Venous Thromboembolism Antithrombotics Is Pt On Any Antithrombotics?: No Exam Sepsis Risk: No Definite Risk Problem Qualifiers (1) Hypertension: Hypertension type: essential hypertension Qualified Codes: I10 - Essential ( primary) hypertension PHYLLIS BENITEZ November 20, 2017 14:12
[2017-11-20] MEDS: PATCH REMOVAL 1 EA TP SCH (20:44)
[2017-11-20] MEDS: cloNIDine HCL 0.1 MG TAB PO PRN (22:20)
[2017-11-21 05:24] VITALS: BP 134/93
--- NOTE | 2017-11-21 07:11 | General Surgery Progress Note ---
Subjective Progress Notes Subjective no complaints, pain controlled, tolerating diet/ Physical Exam Vital Signs Date Time Temp Pulse Resp B/P (MAP) Pulse Ox O2 Delivery O2 Flow Rate FiO2 11/21/17 05:24 98.4 71 16 134/93 (107) 93 Nasal Cannula 1.0 General Appearance: Alert, Awake GI: Soft and Non-Tender Result Diagram: 11/19/17 0527 11/19/17526 Monitor Interpretation: Normal Sinus Rhythm Assessment and Plan Problems: (1) Perforated peptic ulcer Status: Acute Assessment & Plan: Discussed findings on imaging and clinical exam with patient. Recommend abdominal exploration and possible kee patch. He understands and would like to proceed with surgery. Consent obtained. Will coordinate with OR for urgent procedure. Admit to floor with monitoring. 11/17: POD #1 s/p ex-lap, kee patch of perforated duodenal ulcer. Continue BUD drain, continue NG to LIWS. Continue NPO with minimal ice chips. Continue IV zosyn, fluconazole. D/c beckford catheter, encourage OOB, ambulation. 11/18: POD #2 s/p ex-lap, kee patch of duodenal ulcer. Continue BUD, NG. Replace beckford, start flomax. Continue IV abx, SAW SHARPENER for pain, scheduled tylenol. May shower today, encourage ambulation. Possible swallow study tomorrow. 11/20/17 doing well. increase diet and switch to po analgesia and ppi 11/21/17 doing well, home today. Exam Sepsis Risk: No Definite Risk PRANAY CULLEN MD November 21, 2017 07:11
[2017-11-21] MEDS ORDERED: PANT40TA65 PO (07:14)
[2017-11-21] MEDS ORDERED: HYDR-4309 PO (07:14)
[2017-11-21] MEDS ORDERED: TAMS0.4C70 PO (07:14)
--- NOTE | 2017-11-21 07:16 | Hospitalist Depart ---
Discharge Summary Reason for Hosp/Final Diag: (1) Perforated peptic ulcer Status: Acute Hospital Course & Plan: Discussed findings on imaging and clinical exam with patient. Recommend abdominal exploration and possible kee patch. He understands and would like to proceed with surgery. Consent obtained. Will coordinate with OR for urgent procedure. Admit to floor with monitoring. 11/17: POD #1 s/p ex-lap, kee patch of perforated duodenal ulcer. Continue BUD drain, continue NG to LIWS. Continue NPO with minimal ice chips. Continue IV zosyn, fluconazole. D/c beckford catheter, encourage OOB, ambulation. 11/18: POD #2 s/p ex-lap, kee patch of duodenal ulcer. Continue BUD, NG. Replace beckford, start flomax. Continue IV abx, STATE PATROL OFFICER for pain, scheduled tylenol. May shower today, encourage ambulation. Possible swallow study tomorrow. 11/20/17 doing well. increase diet and switch to po analgesia and ppi 11/21/17 doing well, home today. Departure Weight (Pounds): 200 Result Diagram: 11/19/1752611/19/17526 Condition: Improved Discharge: Home Discharge Instructions Home Meds Active Scripts Tamsulosin Hcl (TAMSULOSIN HCL) 0.4 Mg Cap.er.24h, 0.4 MG PO QDAY for 1 Day, #7 CAP Prov:PRANAY CULLEN MD 11/21/17 Hydrocodone Bit/Acetaminophen (NORCO 5-325 TABLET) 1 Each Tablet, 1 EACH PO Q4H Y for PAIN, #30 TAB Prov:PRANAY CULLEN MD 11/21/17 Pantoprazole Sodium (PANTOPRAZOLE SODIUM) 40 Mg Tablet.dr, 40 MG PO BID, #60 TAB.SR 4 Refills Prov:PRANAY CULLEN MD 11/21/17 Reported Medications Tramadol Hcl (TRAMADOL HCL) 50 Mg Tablet, 50 MG PO Q4-6H Y for PAIN, TAB 11/16/17 Discontinued Scripts Amoxicillin/Pot Clav 875-125 Mg Tab (AUGMENTIN 875-125 TABLET) 1 Each Tablet, 1 TAB PO Q12H, #14 TAB 0 Refills Prov:ARAMIS TITUS MD 12/21/15 Diet: Regular Activity: No Heavy Lifting Special Instructions: may shower to see me in one week, call [phone] for apt Copies to: PRANAY CULLEN MD Venous Thromboembolism Antithrombotics Is Pt On Any Antithrombotics?: No PRANAY CULLEN MD November 21, 2017 07:15
[2017-11-21 07:54] VITALS: BP 159/103
[2017-11-21] MEDS ORDERED: AMLO-96 PO (08:55)
[2017-11-21] MEDS ORDERED: amLODIPine BESYL(*) 5 MG TAB PO SCH (09:00)
--- NOTE | 2017-11-21 09:00 | Hospitalist Progress Note ---
Subjective Progress Notes Subjective He has no complaints this morning. Patient Complains of: Cardiovascular: No: Chest Pain Respiratory: No: Shortness of Breath Physical Exam Vital Signs Date Time Temp Pulse Resp B/P (MAP) Pulse Ox O2 Delivery O2 Flow Rate FiO2 11/21/17 07:54 83 11/21/17 07:54 98.3 72 16 159/103 (121) Nasal Cannula 1.0 General Appearance: Alert, Awake, No Acute Distress, Afebrile Cardiovascular: Regular Rate and Rhythm Respiratory: No Respiratory Distress, Clear to Auscultation Extremities: No Edema Psych: Alert & Oriented X3, Appropriate Mood & Affect Result Diagram: 11/19/1752611/19/17526 Monitor Interpretation: Normal Sinus Rhythm Assessment and Plan Problems: (1) Hypertension Status: Acute Assessment & Plan: He was found to have elevated blood pressure throughout admission. He was started on Amlodipine 2.5mg, but we will increase him to 5 mg daily because his blood pressures are still elevated with systolic - 180's and diastolic pressures in the 100's. He will follow up with the [facility]. (2) Perforated peptic ulcer Status: Acute Assessment & Plan: Managed by Dr. Arvizu. Exam Sepsis Risk: No Definite Risk Problem Qualifiers (1) Hypertension: Hypertension type: essential hypertension Qualified Codes: I10 - Essential ( primary) hypertension PHYLLIS BENITEZ November 21, 2017 09:00
[2017-11-21] MEDS: TAMSULOSIN HCL 0.4 MG CAP PO SCH (09:37)
[2017-11-21] MEDS: cloNIDine HCL 0.1 MG TAB PO PRN (09:37)
[2017-11-21] MEDS: PANTOPRAZOLE SOD 40 MG TABEC PO SCH (09:37)
[2017-11-21] MEDS: LIDOCAINE 5% PATCH TP SCH (09:38)
== END 2017-11-21 11:00 | disposition home or self-care (01) | DRG 331 ==
LOC: ER 07:51 → MED 09:00 → OR 09:39
PROVIDERS: ADMIT Surgery; ATTEND Surgery
PROC: 0DU907Z Supplement Duodenum with Autologous Tissue Substitute, Open Approach (ICD-10-PCS; principal; 2017-11-16 14:25)
DX: K26.1 Acute duodenal ulcer with perforation (principal); I10 Essential (primary) hypertension; Z87.891 Personal history of nicotine dependence
CPT/HCPCS: 36415; 71045; 71260; 74177; 74240; 81001; 82040; 82247; 82310; 82374; 82435; 82565; 82947; 83605; 83690; 83735; 84075; 84100; 84132; 84155; 84295; 84450; 84460; 84484; 84520; 85025; 85027; 85610; 85730; 86677; 87040; 87088; 93005; 97161; 97165; 99285; C9113; J0131; J0330; J0360; J0692; J1100; J1170; J1450; J2001; J2060; J2405; J2543; J3010; J3370; J3480; J3490; J7030; J7040; J7050; Q9967

== ENCOUNTER → 2017-11-16 | Outpatient (CLI) | payer SELFPAY ==
[~2017-11-16] MED LIST: AMLO-96 PO; AMOX-559 PO; HYDR-4309 PO; PANT40TA65 PO; TAMS0.4C70 PO; TRAM-420 PO
[2017-11-18 10:48] VITALS: BMI 27.1
== END ==
LOC: AMB 07:16
PROVIDERS: ATTEND Nurse Practitioner
DX: R10.10 Upper abdominal pain, unspecified (principal); R06.02 Shortness of breath; R39.198 Other difficulties with micturition
CPT/HCPCS: A0425; A0427

== ENCOUNTER → 2018-01-01 | Outpatient (REF) ==
[2017-11-18 10:48] VITALS: BMI 27.1
[~2018-01-01] MED LIST changes: +AMLO-96 PO; +HYDR-4309 PO; +PANT40TA65 PO; +TAMS0.4C70 PO; +TRAM-420 PO
== END ==
LOC: US 01:22
PROVIDERS: ATTEND Nurse Practitioner Family
DX: I49.3 Ventricular premature depolarization (principal); R00.1 Bradycardia, unspecified; I51.7 Cardiomegaly; I34.0 Nonrheumatic mitral (valve) insufficiency; I07.1 Rheumatic tricuspid insufficiency; I35.1 Nonrheumatic aortic (valve) insufficiency; I37.1 Nonrheumatic pulmonary valve insufficiency
CPT/HCPCS: 93306

== ENCOUNTER 2018-02-26 00:16 | Inpatient (IN) | payer MEDICARE ==
[2018-02-25 14:23] LABS: INR 1.03
[~2018-02-26] VITALS: Ht 182.9 cm; Wt 86.2 kg
[2018-02-26] VITALS (11 sets, daily range): BP systolic 110–147; BP diastolic 69–92
[~2018-02-26 00:16] MED LIST changes: +AMLO-99 PO
[2018-02-26] MEDS ORDERED: LIDOCAINE/SOD BICARB 8.4% SYR ID ONE (10:15)
[2018-02-26] MEDS ORDERED: ACETAMINOPHEN 500 MG TAB PO ONE (10:15)
[2018-02-26] MEDS ORDERED: FAMOTIDINE 20 MG TAB PO ONE (10:15)
[2018-02-26] MEDS ORDERED: CELECOXIB 200 MG CAP PO ONE (10:15)
[2018-02-26] MEDS ORDERED: BACITRACIN 50000 UNIT/VIAL 100,000 UNIT in NS 0.9% 3000 ML IRRIGATION BAG 3,000 ML IR ONE (10:15)
[2018-02-26] MEDS ORDERED: cloNIDine EPIDUR INJ 100MCG/ML 40 MCG, ROPIVACAINE 0.5% 20 ML VIAL 25 ML, EPINEPHrine H... INJ ONE (10:15)
[2018-02-26] MEDS ORDERED: TRANEXAMIC AC 1000 MG/10ML SDV 1,000 MG in DEXTROSE 5% 50 ML BAG 50 ML IV ONE (10:15)
[2018-02-26] MEDS ORDERED: MIDAZOLAM 2 MG/2 ML VIAL IVP PRN (10:15)
[2018-02-26] MEDS ORDERED: PREGABALIN 150 MG CAPSULE PO ONE (10:15)
[2018-02-26] MEDS ORDERED: NORMOSOL R SOLN(*) 1000 ML BAG 1,000 ML IV PRN (10:15)
[2018-02-26] MEDS ORDERED: DEXAMETHASONE SOD PHOS 10MG/ML ONE (15:16)
[2018-02-26] MEDS ORDERED: PROPOFOL EMUL(*) 10MG/ML 20 ML 20 ML ONE (15:16)
[2018-02-26] MEDS ORDERED: ONDANSETRON 4 MG/2 ML VIAL ONE (15:16)
[2018-02-26] MEDS: ceFAZolin(*) 2GM/D5W 50ML 50 ML IVPB ONE ×2 (15:23→15:50)
[2018-02-26] MEDS ORDERED: LR 1000 ML BAG 1000 ML IV PRN (18:30)
[2018-02-26] MEDS ORDERED: PROMETHAZINE 25 MG/ML 1 ML AMP IVP PRN (18:30)
[2018-02-26] MEDS ORDERED: FLUSH 10 ML SYR IVP PRN (18:30)
[2018-02-26] MEDS ORDERED: PROMETHAZINE HCL(*) 25 MG SUPP PR PRN (18:30)
[2018-02-26] MEDS ORDERED: diphenhydrAMINE 25 MG CAP PO PRN (18:30)
[2018-02-26] MEDS ORDERED: MAGNESIUM CITRATE 300 ML BTL PO PRN (18:30)
[2018-02-26] MEDS ORDERED: MAGNESIUM HYDROXIDE* 30ML UDCP PO PRN (18:30)
[2018-02-26] MEDS ORDERED: ZOLPIDEM TARTRATE 5 MG TAB PO PRN (18:30)
[2018-02-26] MEDS ORDERED: ONDANSETRON 4 MG/2 ML VIAL IVP PRN (18:30)
[2018-02-26] MEDS ORDERED: diphenhydrAMINE 50 MG/ML VIAL IVP PRN (18:30)
[2018-02-26] MEDS ORDERED: HYDROmorphone HCL 2 MG/ML SDV IVP PRN (18:30)
[2018-02-26] MEDS ORDERED: BISACODYL 10 MG SUPP PR PRN (18:30)
--- NOTE | 2018-02-26 18:55 | OPERATIVE REPORT 1 ---
EVENT DATE: February 26, 2018 SURGEON: Henry Pete MD ANESTHESIOLOGIST: Rojas Smith MD ANESTHESIA: General plus spinal. SOFTBALL CORE MOLDER: CHRISTIANO Collins PREOPERATIVE DIAGNOSIS Left hip osteoarthritis. POSTOPERATIVE DIAGNOSIS Left hip osteoarthritis. PROCEDURE PERFORMED Left total hip arthroplasty. FINDINGS The patient had a significant amount of arthritic change associated with the hip , but was amenable for a total hip replacement. ESTIMATED BLOOD LOSS About 300 mL. DRAINS None. COMPLICATIONS None. TOURNIQUET TIME Not applicable. IMPLANTS USED Em trabecular metal 62 mm cup with a neutral liner, an 11 offset extended stem, a 40, +3.5 head, 6 x 5 x 30 screws times two which were placed in the cup itself, and a dome hole plug. INDICATIONS AND HISTORY This patient is a 62-year-old male who presented to my clinic for evaluation of left hip pain and irritation going on for some time. He continued to have pain and irritation despite conservative management, and so therefore, he wanted to go ahead with a total hip arthroplasty today, February 26, 2018. The risks and benefits were discussed with the patient, and informed consent was obtained at the last clinic visit. DESCRIPTION OF PROCEDURE As the patient was brought in the operating room, he and the procedure were both verified. He was placed supine on the operative table and induced and intubated by Anesthesia after given a spinal. The left lower extremity was then prepped and draped in the usual fashion, and a timeout was observed verifying the correct patient and procedure. The standard incision was made over the posterolateral aspect of the hip. It was taken through the skin and subcutaneous tissue, and I was able to go down to the area where the short external rotators where I was able to take the piriformis off the posterior aspect and then tag it for later repair. I then cut some of the short external rotators and then was able to get to the hip joint capsule itself. Once on the hip joint capsule, I was then able to cut this in a T-shape fashion in order to dislocate the hip and then cut the hip in the standard fashion according to the Em stems. I then turned attention to the acetabulum where I was able to gain access with retractors 360 degrees around it and then removed a large section of labrum and some irritated tissue within the socket itself. I then was able to ream starting with the 51 [address] re[address] the way up to a 59 mm reamer. We then initially placed a 60 mm cup within the acetabulum itself, put dome hole plugs and screw hole plugs in this area, and also put a liner in. It appeared stable at the time. There were no signs of problems or issues associated with this until we turned to the femur. Once on the femur, I was then able to take the box cutting osteotome, followed by the canal finder, and then followed by the lateralizing reamer. Once I was able to get down to the main portion of the femur, I was then able to start broaching from a [address] up to an 11. The 11 had excellent fit associated with it, and so therefore, this was the final component chosen. We then trialed a standard offset as well as a standard length head. This had a little bit too much laxity, and so then we tried an extended offset with a +3.5 head. This fit better, but unfortunately, this then loosened the cup as it hit the edge, so therefore, the cup had to be removed. We were unable to remove the liner without any damage to the cup itself, and so therefore, a new cup was chosen to be put in. So then, we put a 62 mm cup into the acetabulum again and then put two screws in to hold it in place. These screws then held everything in place, and there were no signs of loosening associated with this with a significant amount of force in edge loading of the cup. I then was able to put the final components in with the 11 stem with the extended offset and then the +3.5 ceramic head. I then was able to relocate it. It had good stability associated with it and good range of motion. There were no signs of problems, and the leg lengths looked good on an intraoperative x-ray but, unfortunately, he was too large to get it all on one film, though we were able to get a pretty good feeling that we had good leg lengths, no signs of leg length discrepancy, and good position of the cup. We then were able to irrigate with copious amounts of saline which we had done throughout the case using a pulsatile lavage. I repaired the capsule using a heavy Ethibond suture. This was then followed by closure of the piriformis back to the posterior aspect of the femur through drill holes in the posterior aspect of the femur and using the same Ethibond suture. This was then followed by irrigation again and closure of the gluteal musculature with an 0 Stratafix. This was then followed by 2-0 Vicryl in the fat layer and then 2-0 Stratafix in the subcutaneous tissue. A cocktail was then injected throughout the entire aspect of the joint and musculature in order to try and get some pain relief. Then, we put in a 4-0 Monocryl in a subcuticular stitch, followed by Steri- Strips, gauze 4 x 4's, and a soft dressing. The patient was then awakened, extubated, and transferred to PACU in stable condition. AJ
[2018-02-26] MEDS ORDERED: ASPIRIN 325 MG TAB PO SCH (21:00)
--- NOTE | 2018-02-26 21:16 | EKG ---
FACILITY: [facility] PATIENT NAME: AYAD PEREZ : [id number] MR: [id number] V: [id number] EXAM DATE: ORDERING PHYSICIAN: CHUY KHAN TECHNOLOGIST: FREDDY Rosas Reason : BRADYCARDIA Blood Pressure : / mmHG Vent. Rate : 045 BPM Atrial Rate : 045 BPM P-R Int : 140 ms QRS Dur : 118 ms QT Int : 488 ms P-R-T Axes : 056 056 032 degrees QTc Int : 422 ms Marked sinus bradycardia Incomplete right bundle branch block Anterior infarct (cited on or before 16-NOV-2017) Abnormal ECG Poor r-wave progression When compared with ECG of 16-NOV-2017 08:04, Vent. rate has decreased BY 24 BPM Nonspecific T wave abnormality, worse in Lateral leads Confirmed by Chuy Grove ([id number]) on 02/27/2018 12:33:56 AM Referred By: Confirmed By:Chuy Khan
--- NOTE | 2018-02-26 21:31 | RADIOLOGY IMAGING REPORT ---
FACILITY: [facility] PATIENT NAME: William Cowan : 1955 MR: [id number] V: [id number] EXAM DATE: ORDERING PHYSICIAN: ADARSH MANDEL TECHNOLOGIST: Location: [facility] [place] Patient: William Cowan : 1955 Visit/Account:[id number] Date of Sevice: 02/26/2018 HIP IN OR LEFT COMPARISONS: None. ADDITIONAL PERTINENT HISTORY: Left total hip arthroplasty. FINDINGS: Osseous structures: Patient status post total left hip arthroplasty. No bony fractures. Joint spaces: Components in good position. Surrounding soft tissues: Subcutaneous emphysema about the left hip. IMPRESSION: 1. Patient status post total left hip arthroplasty. 2. No acute appearing bony abnormalities. Report Dictated By: Adarsh Wilcox MD at 02/26/2018 9:27 PM Report E-Signed By: Adarsh Wilcox MD at 02/26/2018 9:28 PM WSN:[id number]
--- NOTE | 2018-02-26 21:33 | RADIOLOGY IMAGING REPORT ---
FACILITY: [facility] [place] PATIENT NAME: William Cowan : 1955 MR: [id number] V: [id number] EXAM DATE: ORDERING PHYSICIAN: ADARSH MANDEL TECHNOLOGIST: Location: [facility] Patient: William Cowan : 1955 Visit/Account:[id number] Date of Sevice: 02/26/2018 PELVIS COMPARISONS: Earlier dated same day, hip in OR. ADDITIONAL PERTINENT HISTORY: Left total hip arthroplasty. FINDINGS: Osseous structures: Patient status post total left hip arthroplasty. Mild subchondral sclerosis and o steophyte formation involving the superior lateral aspects of the right hip joint. No bony fractures. Joint spaces: Mild joint space narrowing involving the superior lateral aspects of the right hip join t. Components of the left hip arthroplasty in good position. Surrounding soft tissues: Subcutaneous emphysema about the left hip. IMPRESSION: 1. Patient status post total left hip arthroplasty. 2. Osteoarthritic changes involving the right hip. 3. No periprocedural complications noted. Report Dictated By: Adarsh Wilcox MD at 02/26/2018 9:28 PM Report E-Signed By: Adarsh Wilcox MD at 02/26/2018 9:30 PM WSN:[id number]
[2018-02-26] MEDS ORDERED: NS(*) 0.9% 250 ML BAG 250 ML ONE (23:23)
[2018-02-26] MEDS: ceFAZolin(*) 2GM/D5W 50ML 50 ML IVPB SCH (23:32)
--- NOTE | 2018-02-26 23:42 | Hospitalist Consultation ---
History of Present Illness Requesting Physician Dr Pete Reason for Consult Medical management of comorbidities. Chief Complaint R NOHEMI History of Present Illness 62M presented for R NOHEMI with Dr Pete. Hospitalist team consulted for medical management. Pt has relatively few comorbidities. Hx of abdominal surgery 2/2 perforated duodenal ulcer. Uncomplicated post op course. On examination noted to be profoundly bradycardic but asymptomatic. History Problems: (1) Perforated peptic ulcer Status: Acute (2) Hypertension Status: Chronic Home Meds Reported Medications Amlodipine Besylate (AMLODIPINE BESYLATE) 10 Mg Tablet, 1 TAB PO QDAY for Blood Pressure, TAB 02/19/18 Discontinued Reported Medications Tramadol Hcl (TRAMADOL HCL) 50 Mg Tablet, 50 MG PO Q4-6H Y for PAIN, TAB 11/16/17 Discontinued Scripts Amlodipine Besylate (AMLODIPINE BESYLATE) 5 Mg Tablet, 1 TAB PO QDAY, #30 TAB Prov:PHYLLIS BENITEZ ELECTRICAL INSTRUMENT MAKER 11/21/17 Tamsulosin Hcl (TAMSULOSIN HCL) 0.4 Mg Cap.er.24h, 0.4 MG PO QDAY for 1 Day, #7 CAP Prov:PRANAY CULLEN MD 11/21/17 Hydrocodone Bit/Acetaminophen (NORCO 5-325 TABLET) 1 Each Tablet, 1 EACH PO Q4H Y for PAIN, #30 TAB Prov:PRANAY CULLEN MD 11/21/17 Pantoprazole Sodium (PANTOPRAZOLE SODIUM) 40 Mg Tablet.dr, 40 MG PO BID, #60 TAB.SR 4 Refills Prov:PRANAY CULLEN MD 11/21/17 Allergies: Coded Allergies: No Known Drug Allergies (Unverified , 11/16/17) Patient History: FH: COPD (chronic obstructive pulmonary disease) MOTHER FH: multiple myeloma FATHER Hx Smoking: Yes (QUIT SMOKING ABOUT 20 YEARS AGO WAS A 2PPD SMOKER) Smoking Status: Former Smoker Exposure to Second Hand Smoke?: Yes When Quit Tobacco?: 20 YEARS AGO Caffeine Intake: Tea Caffeine/Cups Per Day: 2 Hx Alcohol Use: Yes Alcohol Used: Liquor Hx Substance Use Disorder: Yes (MARIJUANA) Social Drug Use: Occasional Social Drugs: Marijuana Amount Of Social Drug/s Used: SMOKES MARIJUANA A COUPLE TIMES A MONTH History of IV Drug Use: No Review of Systems All Systems Reviewed/Normal: Yes Exam Vital Signs Vital Signs Date Time Temp Pulse Resp B/P (MAP) Pulse Ox O2 Delivery O2 Flow Rate FiO2 02/26/18 23:00 98.2 40 16 110/69 (83) 97 Room Air General Appearance: Alert, Awake, No Acute Distress Neuro: No Gross deficits Eyes: PERRLA ENT: Normal Neck: No Masses Cardiovascular: Other (bradycardic) Respiratory: Clear to Auscultation Chest: No Tenderness GI: Abd Soft and Non-Tender Lymph: Cervical Nodes Benign Musculoskeletal: No Weakness/Pain Extremities: Soft and Non Tender (post operative changes ), Warm, Pulses, No Edema Integumentary: Skin Intact without Lesion / Mass Psych: Alert & Oriented X3 Medical Decision Making EKG / Imaging Monitor Interpretation: Sinus Bradycardia Assessment and Plan Problems: (1) Bradycardia Assessment & Plan: Sinus felix with rate in mid/low 40's. Asymptomatic, no EKG changes other than rate. Will monitor rate and if drops into 30's will put pt on tele. Tomorrow will monitor HR while working with PT and evaluate for appropriate increase in heart rate. (2) Arthritis of right hip Assessment & Plan: S/P R TKA, doing well post operatively. Begin 325 ASA for DVT PPx in am. Pain well controlled, anticipate d/c tomorrow. (3) Hypertension Status: Chronic Assessment & Plan: Currently well controlled, begin home amlodipine with hold parameters. Venous Thromboembolism Antithrombotics Is Pt On Any Antithrombotics?: Yes Exam Sepsis Risk: No Definite Risk CHUY MCMAHON DO Feb 26, 2018 23:42
[2018-02-27] VITALS: BP 125/75
[2018-02-27 02:07] VITALS: BP 115/77
[2018-02-27 07:59] VITALS: BP 138/84
[2018-02-27] MEDS: ceFAZolin(*) 2GM/D5W 50ML 50 ML IVPB SCH (08:03)
[2018-02-27] MEDS ORDERED: ASPIRIN 325 MG ENTERIC COATED PO SCH (09:00)
[2018-02-27] MEDS ORDERED: amLODIPine BESYL(*) 5 MG TAB PO SCH (09:00)
[2018-02-27] MEDS ORDERED: ASPI-764 PO (11:06)
[2018-02-27 11:15] VITALS: BP 133/79
[2018-02-27] MEDS ORDERED: OXYC-865 PO ×2 (11:51)
[2018-02-27 14:15] VITALS: Ht 182.9 cm; Wt 86.2 kg
--- NOTE | 2018-02-27 14:27 | Hospitalist Progress Note ---
Subjective Progress Notes Subjective He has no complaints this morning. He had no acute events overnight. Patient Complains of: Cardiovascular: No: Chest Pain Respiratory: No: Shortness of Breath Physical Exam Vital Signs Date Time Temp Pulse Resp B/P (MAP) Pulse Ox O2 Delivery O2 Flow Rate FiO2 02/27/18 13:32 Room Air 02/27/18 11:15 97.7 48 10 133/79 (97) 97 Intake and Output 02/28/18 01:00 Intake Total 1052 ml Balance 1052 ml Intake Oral 980 ml IV Total 72 ml # Voids 2 General Appearance: Alert, Awake, No Acute Distress, Afebrile Neuro: No Gross deficits Cardiovascular: Regular Rate and Rhythm Respiratory: No Respiratory Distress, Clear to Auscultation GI: Soft and Non-Tender Psych: Alert & Oriented X3, Appropriate Mood & Affect Result Diagram: 02/27/18 0550 02/27/18 0550 Monitor Interpretation: Sinus Bradycardia Assessment and Plan Problems: (1) Bradycardia Assessment & Plan: Sinus felix with rate in mid/low 40's. Asymptomatic, no EKG changes other than rate. HR maintained in the upper 40's to 50's. He will follow up with [facility] if he becomes symptomatic. (2) Arthritis of right hip Assessment & Plan: S/P R TKA, doing well post operatively. He will take 325 ASA for DVT prevention. Pain well controlled. (3) Hypertension Status: Chronic Assessment & Plan: Currently well controlled, he is on chronic treatment with Amlodipine. Exam Sepsis Risk: No Definite Risk PHYLLIS BENITEZ [employer]SIDE PLANT SUPERVISOR Feb 27, 2018 14:27
== END 2018-02-27 13:17 | disposition home health service (06) | DRG 470 ==
LOC: OR 00:16 → MED 19:20
PROVIDERS: ADMIT Orthopaedic Surgery; ATTEND Orthopaedic Surgery
PROC: 0SRB02Z Replacement of Left Hip Joint with Metal on Polyethylene Synthetic Substitute, Open Approach (ICD-10-PCS; principal; 2018-02-26 15:30)
DX: M16.12 Unilateral primary osteoarthritis, left hip (principal); I10 Essential (primary) hypertension; R00.1 Bradycardia, unspecified; Z87.891 Personal history of nicotine dependence
CPT/HCPCS: 36415; 72170; 82310; 82374; 82435; 82565; 82947; 84132; 84295; 84520; 85014; 85018; 85610; 86850; 86900; 86901; 93005; 97161; 97165; C1713; C1776; J0171; J0690; J0735; J1100; J1170; J1885; J2250; J2405; J2704; J2795; J7050; J7060

== ENCOUNTER 2019-01-09 00:09 | Day surgery (SDC) | payer MEDICARE ==
[2018-02-27 14:15] VITALS: Ht 182.9 cm; Wt 89.4 kg
[~2019-01-09] VITALS: Ht 182.9 cm; Wt 89.4 kg
[~2019-01-09 00:09] MED LIST changes: +AMLO-125 PO; +AMLO-127 PO; -AMLO-96 PO; -AMLO-99 PO; +ASPI-764 PO; -HYDR-4309 PO; +HYDR-653 PO; +OXYC-865 PO
[2019-01-09] MEDS: NORMOSOL R SOLN(*) 1000 ML BAG 1,000 ML IV PRN ×2 (06:38→07:56)
[2019-01-09 06:56] VITALS: BP 149/97
[2019-01-09] MEDS ORDERED: PROPOFOL EMUL(*) 10MG/ML 20 ML 60 ML ONE (06:56)
[2019-01-09] MEDS ORDERED: LIDOCAINE MPF 1% 5 ML VIAL ONE (06:56)
[2019-01-09] MEDS ORDERED: LIDOCAINE/SOD BICARB 8.4% SYR ID ONE (07:20)
[2019-01-09 09:07] VITALS: BP 106/63
[2019-01-09 09:30] VITALS: BP 120/87
[2019-01-09 09:44] VITALS: BP 124/92
[2019-01-09 09:45] VITALS: BP 130/89
== END 2019-01-09 10:01 | disposition home health service (06) ==
LOC: OR 00:09
PROVIDERS: ATTEND Family Medicine
DX: Z12.11 Encounter for screening for malignant neoplasm of colon (principal); I10 Essential (primary) hypertension; Z87.891 Personal history of nicotine dependence; K57.30 Diverticulosis of large intestine without perforation or abscess without bleeding
CPT/HCPCS: 00812; G0121; J2001; J2704